=== PATIENT | female | born 1945 | race African-American/Black ===

== ENCOUNTER 2020-11-28 14:04 | Inpatient (IN) | payer MEDICARE, MEDICAID ==
[~2020-11-28] VITALS: Ht 172.7 cm; Wt 77.1 kg
[2020-11-28] MEDS ORDERED: ACETAMINOPHEN WITH CODEINE 300/30MG TABLET PO ONE (14:45)
[2020-11-28] MEDS ORDERED: ONDANSETRON HCL 4MG/2ML INJ IV STA (17:38)
[2020-11-28] MEDS ORDERED: MORPHINE SULFATE 4 MG/ML CPJ (NOT FOR IM USE) IV STA (17:38)
[2020-11-28] MEDS ORDERED: SODIUM CHLORIDE 0.9% 1,000 ML IV ONE (17:45)
[2020-11-28 18:13] LABS: BASOPHILS % 0.2 % (0.0-2.0); EOSINOPHILS % 0.1 % (0.0-5.0); HEMOGLOBIN. 12.3 g/dL (12.0-16.0); LYMPHOCYTES % 13.5 % (20.0-50.0); MEAN CORPUSCULAR VOLUME 81.2 fL (81.0-99.0); MEAN PLATELET VOLUME 9.2 fl (7.4-10.4); MONOCYTES % 7.9 % (2.0-8.0); NEUTROPHILS % 78.3 % (40.0-76.0); PLATELET 219 x1000/uL (130-400); RED BLOOD CELL COUNT 4.56 mill/uL (4.2-5.4); RED CELL DISTRIBUTION WIDTH 14.5 % (11.6-14.6)
[2020-11-28 18:21] LABS: INR 1.2; PROTHROMBIN TIME 12.4 sec (9.6-11.0)
[2020-11-28 18:30] LABS: CHLORIDE 104 mEq/L (98-107)
[2020-11-28] MEDS: MORPHINE SULFATE 2 MG/ML CPJ (NOT FOR IM USE) IV PRN (22:49)
[2020-11-29] VITALS (7 sets, daily range): BP systolic 102–163; BP diastolic 44–95
[2020-11-29] MEDS ORDERED: ONDANSETRON HCL 4MG/2ML INJ IV PRN (01:45)
[2020-11-29 06:53] LABS: CHLORIDE 107 mEq/L (98-107)
[2020-11-29 07:12] LABS: BASOPHILS % 0.4 % (0.0-2.0); EOSINOPHILS % 0.1 % (0.0-5.0); HEMATOCRIT. 30.8 % (36.0-48.0); HEMOGLOBIN. 10.2 g/dL (12.0-16.0); LYMPHOCYTES % 15.6 % (20.0-50.0); MEAN CORPUSCULAR HEMOGLOBIN 26.7 pg (28.0-32.0); MEAN PLATELET VOLUME 9.9 fl (7.4-10.4); MONOCYTES % 10.9 % (2.0-8.0); PLATELET 207 x1000/uL (130-400); RED CELL DISTRIBUTION WIDTH 14.4 % (11.6-14.6)
[2020-11-29] MEDS: METOPROLOL TARTRATE 50MG TABLET PO SCH ×2 (08:37→21:00)
[2020-11-29] MEDS ORDERED: ENOXAPARIN 40MG/0.4ML SYR SUBCUT SCH (09:00)
[2020-11-29 17:26] LABS: CLARITY URINE CLEAR (CLEAR); COLOR URINE YELLOW (YELLOW); KETONES URINE TRACE (NEGATIVE); LEUKOCYTE ESTERASE URINE NEGATIVE (NEGATIVE); NITRITE URINE NEGATIVE (NEGATIVE); OCCULT BLOOD URINE 3+ (NEGATIVE); PH URINE 5.5 (4.5-8.0); PROTEIN URINE 1+ (NEGATIVE); UROBILINOGEN URINE 0.2 E.U./dL (0.2-1.0)
[2020-11-30] VITALS: BP 116/52
[2020-11-30 04:00] VITALS: BP 120/75
[2020-11-30 08:00] VITALS: BP 117/65
[2020-11-30] MEDS: METOPROLOL TARTRATE 50MG TABLET PO SCH ×2 (08:45→21:00)
[2020-11-30] MEDS ORDERED: BUPIVACAINE HCL 0.5% (5MG/ML) 50ML ONE (11:46)
[2020-11-30] MEDS ORDERED: LIDOCAINE 1%/EPI 1:200,000 10 ML VIAL IJ ONE (11:48)
[2020-11-30] MEDS ORDERED: VANCOMYCIN HCL 1 GM/VIAL ONE (11:49)
[2020-11-30] MEDS ORDERED: POLYMYXIN B SULFATE 500000 UNITS/VIAL ONE (11:49)
[2020-11-30 12:00] VITALS: BP 104/49
[2020-11-30 16:00] VITALS: BP 101/42
[2020-11-30 20:01] VITALS: BP 118/48
[2020-12-01] VITALS: BP 130/55
[2020-12-01 04:00] VITALS: BP 117/59
[2020-12-01 08:00] VITALS: BP 139/64
[2020-12-01] MEDS: METOPROLOL TARTRATE 50MG TABLET PO SCH (08:43)
[2020-12-01 12:00] VITALS: BP 106/56
[2020-12-01 16:00] VITALS: BP 110/54
[2020-12-01 20:00] VITALS: BP 125/51
[2020-12-02] VITALS: BP 150/58
[2020-12-02] MEDS: METOPROLOL TARTRATE 50MG TABLET PO SCH ×2 (00:58→09:00)
[2020-12-02] MEDS: MORPHINE SULFATE 2 MG/ML CPJ (NOT FOR IM USE) IV PRN ×2 (01:01→10:29)
[2020-12-02 04:00] VITALS: BP 142/53
[2020-12-02 06:17] LABS: BASOPHILS % 0.3 % (0.0-2.0); EOSINOPHILS % 0.6 % (0.0-5.0); HEMATOCRIT. 26.4 % (36.0-48.0); HEMOGLOBIN. 8.7 g/dL (12.0-16.0); LYMPHOCYTES % 14.1 % (20.0-50.0); MEAN CORPUSCULAR HEMOGLOBIN 26.5 pg (28.0-32.0); MEAN CORPUSCULAR VOLUME 80.5 fL (81.0-99.0); MEAN PLATELET VOLUME 9.3 fl (7.4-10.4); MONOCYTES % 11.9 % (2.0-8.0); NEUTROPHILS % 73.1 % (40.0-76.0); PLATELET 179 x1000/uL (130-400); RED BLOOD CELL COUNT 3.28 mill/uL (4.2-5.4); RED CELL DISTRIBUTION WIDTH 14.1 % (11.6-14.6)
[2020-12-02 06:27] LABS: CHLORIDE 106 mEq/L (98-107)
[2020-12-02 08:00] VITALS: BP 96/54
[2020-12-02 20:00] VITALS: BP 117/46
[2020-12-02] MEDS: METOPROLOL TARTRATE 25MG TABLET PO SCH (20:47)
[2020-12-03] VITALS: BP 111/42
[2020-12-03 04:00] VITALS: BP 111/54
[2020-12-03 06:54] LABS: BASOPHILS % 0.3 % (0.0-2.0); EOSINOPHILS % 2.2 % (0.0-5.0); HEMATOCRIT. 24.2 % (36.0-48.0); HEMOGLOBIN. 8.1 g/dL (12.0-16.0); LYMPHOCYTES % 17.4 % (20.0-50.0); MEAN CORPUSCULAR HEMOGLOBIN 26.7 pg (28.0-32.0); MEAN CORPUSCULAR VOLUME 79.8 fL (81.0-99.0); MEAN PLATELET VOLUME 9.2 fl (7.4-10.4); MONOCYTES % 14.1 % (2.0-8.0); PLATELET 204 x1000/uL (130-400); RED BLOOD CELL COUNT 3.03 mill/uL (4.2-5.4); RED CELL DISTRIBUTION WIDTH 14.3 % (11.6-14.6)
[2020-12-03 07:35] LABS: CHLORIDE 107 mEq/L (98-107)
[2020-12-03 08:00] VITALS: BP 141/69
[2020-12-03] MEDS: METOPROLOL TARTRATE 25MG TABLET PO SCH ×2 (09:59→21:00)
[2020-12-03 12:00] VITALS: BP 116/50
[2020-12-03] MEDS ORDERED: REGADENOSON 0.4 MG/5 ML IV ONE (12:11)
[2020-12-03] MEDS ORDERED: BUPIVACAINE HCL/PF 0.5% (5MG/ML) 10ML ONE (15:54)
[2020-12-03] MEDS ORDERED: VANCOMYCIN HCL 1 GM/VIAL ONE (15:55)
[2020-12-03] MEDS ORDERED: LIDOCAINE 1%/EPI 1:200,000 10 ML VIAL IJ ONE (15:55)
[2020-12-03] MEDS ORDERED: POLYMYXIN B SULFATE 500000 UNITS/VIAL ONE (15:55)
[2020-12-03 16:00] VITALS: BP 113/52
[2020-12-03] MEDS ORDERED: FENTANYL CITRATE/PF 50MCG/ML 2ML VIAL ONE ×2 (17:52→19:02)
[2020-12-03] MEDS ORDERED: GLYCOPYRROLATE 0.2 MG/ML 2ML VIAL ONE ×2 (17:53→19:26)
[2020-12-03] MEDS ORDERED: MIDAZOLAM HCL 2 MG/2 ML VIAL ONE (17:53)
[2020-12-03] MEDS ORDERED: PROPOFOL 200MG/20ML VIAL IV ONE (17:53)
[2020-12-03] MEDS ORDERED: METOCLOPRAMIDE HCL 10MG/2ML VIAL ONE (17:53)
[2020-12-03] MEDS ORDERED: SUCCINYLCHOLINE CHLORIDE 200MG/10ML IV ONE (17:53)
[2020-12-03] MEDS ORDERED: ONDANSETRON HCL 4MG/2ML INJ ONE (17:53)
[2020-12-03] MEDS ORDERED: ROCURONIUM BROMIDE 10MG/ML VIAL 5ML IV ONE (18:00)
[2020-12-03] MEDS ORDERED: CEFAZOLIN SODIUM 1000MG/VIAL ONE (18:02)
[2020-12-03] MEDS ORDERED: GENTAMICIN SULF 40MG/ML 2ML VIAL ONE (18:47)
[2020-12-03] MEDS ORDERED: NEOSTIGMINE METHYLSULFATE 1MG/ML 10 ML VIAL ONE (19:26)
[2020-12-03] MEDS ORDERED: MORPHINE SULFATE 2 MG/ML CPJ (NOT FOR IM USE) IV PRN (19:45)
[2020-12-03] MEDS ORDERED: HYDROMORPHONE HCL/PF 2MG/ML CPJ IV PRN (19:45)
[2020-12-03] MEDS ORDERED: SODIUM CHLORIDE 0.9% 1,000 ML IV ONE (19:45)
[2020-12-03] MEDS ORDERED: ONDANSETRON HCL 4MG/2ML INJ IV PRN (19:45)
[2020-12-03] MEDS ORDERED: MEPERIDINE HCL/PF 25MG/ML CPJ IV PRN ×2 (19:45)
[2020-12-03] MEDS ORDERED: HYDROMORPHONE PCA 10MG/50ML IV PRN (20:00)
[2020-12-03] MEDS ORDERED: NALOXONE INJ IV PRN (20:00)
[2020-12-03] MEDS ORDERED: DIPHENHYDRAMINE INJ IV PRN (20:00)
[2020-12-03] MEDS ORDERED: ONDANSETRON INJ IV PRN (20:00)
[2020-12-03] MEDS ORDERED: CEFAZOLIN SODIUM 1000MG/VIAL IV SCH (22:00)
[2020-12-03] MEDS: CEFAZOLIN 1000MG PREMIX 50 ML IV SCH (23:53)
[2020-12-04 00:02] VITALS: BP 140/63
[2020-12-04 04:00] VITALS: BP 128/66
[2020-12-04 05:30] LABS: HEMATOCRIT. 25.9 % (36.0-48.0); HEMOGLOBIN. 8.4 g/dL (12.0-16.0); MEAN CORPUSCULAR HEMOGLOBIN 26.2 pg (28.0-32.0); MEAN CORPUSCULAR VOLUME 80.9 fL (81.0-99.0); MEAN PLATELET VOLUME 8.7 fl (7.4-10.4); PLATELET 222 x1000/uL (130-400); RED CELL DISTRIBUTION WIDTH 14.4 % (11.6-14.6)
[2020-12-04 05:38] LABS: CHLORIDE 106 mEq/L (98-107)
[2020-12-04] MEDS: CEFAZOLIN 1000MG PREMIX 50 ML IV SCH ×3 (06:16→22:10)
[2020-12-04 08:00] VITALS: BP 136/69
[2020-12-04] MEDS: METOPROLOL TARTRATE 25MG TABLET PO SCH ×2 (09:38→22:08)
[2020-12-04 12:00] VITALS: BP 124/67
[2020-12-04] MEDS: DOCUSATE SODIUM SUGAR FREE 100MG/10ML UDC PO SCH (15:12)
[2020-12-04 16:00] VITALS: BP 127/61
[2020-12-04 16:25] LABS: PLATELET ESTIMATE NORMAL
[2020-12-04 20:00] VITALS: BP 146/74
[2020-12-04] MEDS: IPRATROPIUM/ALBUTEROL 0.5-3(2.5)MG/3ML NEB HHN SCH (20:51)
[2020-12-04] MEDS: ATORVASTATIN CALCIUM 20MG TABLET PO SCH (22:09)
[2020-12-05] VITALS: BP 105/65
[2020-12-05] MEDS: IPRATROPIUM/ALBUTEROL 0.5-3(2.5)MG/3ML NEB HHN SCH ×3 (02:02→20:25)
[2020-12-05 04:00] VITALS: BP 134/59
[2020-12-05 06:39] LABS: BASOPHILS % 0.2 % (0.0-2.0); EOSINOPHILS % 0.1 % (0.0-5.0); LYMPHOCYTES % 10.9 % (20.0-50.0); MEAN CORPUSCULAR HEMOGLOBIN 26.3 pg (28.0-32.0); MEAN CORPUSCULAR VOLUME 80.5 fL (81.0-99.0); MEAN PLATELET VOLUME 8.3 fl (7.4-10.4); MONOCYTES % 11.1 % (2.0-8.0); NEUTROPHILS % 77.7 % (40.0-76.0); PLATELET 198 x1000/uL (130-400); RED CELL DISTRIBUTION WIDTH 14.2 % (11.6-14.6)
[2020-12-05 06:43] LABS: CHLORIDE 108 mEq/L (98-107)
[2020-12-05 08:00] VITALS: BP 116/86
[2020-12-05 08:10] LABS: HEMATOCRIT. 21.7 % (36.0-48.0); HEMOGLOBIN. 7.1 g/dL (12.0-16.0)
[2020-12-05] MEDS: HYDROCODONE/ACETAMINOPHEN 5/325MG TABLET PO PRN (09:36)
[2020-12-05] MEDS: DOCUSATE SODIUM SUGAR FREE 100MG/10ML UDC PO SCH (09:36)
[2020-12-05] MEDS ORDERED: DEXTROSE 50% WATER 50ML SYRINGE IV PRN (11:45)
[2020-12-05 12:00] VITALS: BP 95/41
[2020-12-05] MEDS: BLOOD SUGAR DIAGNOSTIC STRIP TEST SCH ×3 (12:20→21:34)
[2020-12-05] MEDS: INSULIN LISPRO 100 UNITS/ML SUBCUT SCH ×3 (12:50→21:36)
[2020-12-05 16:10] VITALS: BP 127/56
[2020-12-05] MEDS ORDERED: PIPERACILLIN/TAZOBACTAM 3.375 G/VIAL IV SCH (18:00)
[2020-12-05 18:24] LABS: T4 FREE 1.6 ng/dL (0.76-1.46)
[2020-12-05 18:49] LABS: VITAMIN B12 SERUM 1587 pg/mL (211-911)
[2020-12-05] MEDS: PIPERACILLIN/TAZOBACTAM 3.375 G in DEXT 5% WATER 100 ML IV SCH (18:56)
[2020-12-05 18:59] LABS: FOLIC ACID (FOLATE) SERUM > 20.00 ng/mL (>5.38)
[2020-12-05 20:00] VITALS: BP 107/60
[2020-12-05 20:08] LABS: CLARITY URINE CLEAR (CLEAR); COLOR URINE YELLOW (YELLOW); KETONES URINE NEGATIVE (NEGATIVE); LEUKOCYTE ESTERASE URINE NEGATIVE (NEGATIVE); NITRITE URINE NEGATIVE (NEGATIVE); OCCULT BLOOD URINE 2+ (NEGATIVE); PH URINE 6.5 (4.5-8.0); PROTEIN URINE TRACE (NEGATIVE); SPECIFIC GRAVITY URINE 1.085 (1.005-1.030)
[2020-12-05] MEDS ORDERED: ENOXAPARIN 80MG/0.8ML SYR SUBCUT SCH (21:00)
[2020-12-05] MEDS: ATORVASTATIN CALCIUM 20MG TABLET PO SCH (21:34)
[2020-12-06] VITALS (10 sets, daily range): BP systolic 103–127; BP diastolic 44–62
[2020-12-06 00:27] LABS: BASOPHILS % 0.3 % (0.0-2.0); EOSINOPHILS % 1.7 % (0.0-5.0); HEMOGLOBIN. 7.5 g/dL (12.0-16.0); MEAN CORPUSCULAR HEMOGLOBIN 26.4 pg (28.0-32.0); MEAN CORPUSCULAR VOLUME 81.2 fL (81.0-99.0); MEAN PLATELET VOLUME 8.2 fl (7.4-10.4); MONOCYTES % 11.1 % (2.0-8.0); NEUTROPHILS % 71.9 % (40.0-76.0); PLATELET 219 x1000/uL (130-400); RED BLOOD CELL COUNT 2.83 mill/uL (4.2-5.4); RED CELL DISTRIBUTION WIDTH 14.2 % (11.6-14.6)
[2020-12-06] MEDS ORDERED: IOHEXOL-350 100 ML BOTTLE ONE (01:18)
[2020-12-06] MEDS: IPRATROPIUM/ALBUTEROL 0.5-3(2.5)MG/3ML NEB HHN SCH ×4 (03:11→20:09)
[2020-12-06] MEDS: PIPERACILLIN/TAZOBACTAM 3.375 G in DEXT 5% WATER 100 ML IV SCH ×4 (05:18→17:30)
[2020-12-06] MEDS: BLOOD SUGAR DIAGNOSTIC STRIP TEST SCH ×4 (05:47→20:40)
[2020-12-06 07:00] LABS: BASOPHILS % 0.4 % (0.0-2.0); EOSINOPHILS % 2.3 % (0.0-5.0); LYMPHOCYTES % 16.5 % (20.0-50.0); MEAN CORPUSCULAR HEMOGLOBIN 26.1 pg (28.0-32.0); MEAN CORPUSCULAR VOLUME 80.7 fL (81.0-99.0); MEAN PLATELET VOLUME 8.5 fl (7.4-10.4); MONOCYTES % 10.7 % (2.0-8.0); NEUTROPHILS % 70.1 % (40.0-76.0); PLATELET 209 x1000/uL (130-400); RED BLOOD CELL COUNT 2.58 mill/uL (4.2-5.4); RED CELL DISTRIBUTION WIDTH 14.8 % (11.6-14.6)
[2020-12-06] MEDS: INSULIN LISPRO 100 UNITS/ML SUBCUT SCH ×4 (07:00→20:41)
[2020-12-06 07:11] LABS: CHLORIDE 109 mEq/L (98-107)
[2020-12-06 07:38] LABS: HEMOGLOBIN. 6.7 g/dL (12.0-16.0)
[2020-12-06 07:39] LABS: HEMATOCRIT. 20.8 % (36.0-48.0)
[2020-12-06] MEDS: DOCUSATE SODIUM SUGAR FREE 100MG/10ML UDC PO SCH ×2 (09:44→17:00)
[2020-12-06] MEDS: FERROUS SULFATE 325MG TABLET PO SCH ×2 (12:01→17:30)
[2020-12-06] MEDS: ACETAMINOPHEN 650MG/20.3ML UDC PO PRN ×2 (16:07→20:41)
[2020-12-06] MEDS: ATORVASTATIN CALCIUM 20MG TABLET PO SCH (20:40)
[2020-12-07] VITALS (7 sets, daily range): BP systolic 16–141; BP diastolic 54–102
[2020-12-07] MEDS: PIPERACILLIN/TAZOBACTAM 3.375 G in DEXT 5% WATER 100 ML IV SCH ×5 (01:36→23:49)
[2020-12-07] MEDS: IPRATROPIUM/ALBUTEROL 0.5-3(2.5)MG/3ML NEB HHN SCH ×4 (02:05→20:20)
[2020-12-07] MEDS: BLOOD SUGAR DIAGNOSTIC STRIP TEST SCH ×4 (06:22→21:00)
[2020-12-07] MEDS: INSULIN LISPRO 100 UNITS/ML SUBCUT SCH ×4 (06:30→22:15)
[2020-12-07 06:58] LABS: BASOPHILS % 0.4 % (0.0-2.0); EOSINOPHILS % 2.1 % (0.0-5.0); HEMATOCRIT. 24.6 % (36.0-48.0); HEMOGLOBIN. 8.2 g/dL (12.0-16.0); LYMPHOCYTES % 14.1 % (20.0-50.0); MEAN CORPUSCULAR HEMOGLOBIN 26.7 pg (28.0-32.0); MEAN CORPUSCULAR VOLUME 80.2 fL (81.0-99.0); MEAN PLATELET VOLUME 8.1 fl (7.4-10.4); MONOCYTES % 7.5 % (2.0-8.0); NEUTROPHILS % 75.9 % (40.0-76.0); PLATELET 242 x1000/uL (130-400); RED BLOOD CELL COUNT 3.06 mill/uL (4.2-5.4); RED CELL DISTRIBUTION WIDTH 14.2 % (11.6-14.6)
[2020-12-07 07:32] LABS: CHLORIDE 108 mEq/L (98-107)
[2020-12-07] MEDS: FERROUS SULFATE 325MG TABLET PO SCH ×3 (08:25→17:24)
[2020-12-07] MEDS: DOCUSATE SODIUM SUGAR FREE 100MG/10ML UDC PO SCH ×2 (08:25→17:24)
[2020-12-07] MEDS ORDERED: POTASSIUM CHLORIDE 20MEQ TABLET SR PO SCH (11:00)
[2020-12-07] MEDS: BENZONATATE 100MG CAPSULE PO PRN ×2 (12:25→23:06)
[2020-12-07] MEDS ORDERED: INSULIN GLARGINE UD 100 UNITS/ML SYR SUBCUT NR (17:00)
[2020-12-07] MEDS: HYDROCODONE/ACETAMINOPHEN 5/325MG TABLET PO PRN (23:06)
[2020-12-07] MEDS: ENOXAPARIN 80MG/0.8ML SYR SUBCUT SCH (23:07)
[2020-12-07] MEDS: ATORVASTATIN CALCIUM 20MG TABLET PO SCH (23:19)
[2020-12-07] MEDS: INSULIN GLARGINE UD 100 UNITS/ML SYR SUBCUT SCH (23:21)
[2020-12-08] VITALS: BP 153/60
[2020-12-08] MEDS: IPRATROPIUM/ALBUTEROL 0.5-3(2.5)MG/3ML NEB HHN SCH ×4 (00:40→20:27)
[2020-12-08 04:00] VITALS: BP 148/82
[2020-12-08] MEDS: BLOOD SUGAR DIAGNOSTIC STRIP TEST SCH ×4 (07:14→21:33)
[2020-12-08] MEDS: PIPERACILLIN/TAZOBACTAM 3.375 G in DEXT 5% WATER 100 ML IV SCH ×4 (07:14→23:23)
[2020-12-08] MEDS: FERROUS SULFATE 325MG TABLET PO SCH ×3 (07:14→18:12)
[2020-12-08] MEDS: INSULIN LISPRO 100 UNITS/ML SUBCUT SCH ×4 (07:15→21:43)
[2020-12-08 07:21] LABS: CHLORIDE 107 mEq/L (98-107)
[2020-12-08 07:27] LABS: BASOPHILS % 0.4 % (0.0-2.0); EOSINOPHILS % 1.7 % (0.0-5.0); HEMATOCRIT. 25.9 % (36.0-48.0); HEMOGLOBIN. 8.6 g/dL (12.0-16.0); LYMPHOCYTES % 13.5 % (20.0-50.0); MEAN CORPUSCULAR HEMOGLOBIN 26.6 pg (28.0-32.0); MEAN CORPUSCULAR VOLUME 80.5 fL (81.0-99.0); MONOCYTES % 8.6 % (2.0-8.0); NEUTROPHILS % 75.8 % (40.0-76.0); PLATELET 290 x1000/uL (130-400); RED BLOOD CELL COUNT 3.22 mill/uL (4.2-5.4); RED CELL DISTRIBUTION WIDTH 14.2 % (11.6-14.6)
[2020-12-08 08:00] VITALS: BP 128/63
[2020-12-08] MEDS: DOCUSATE SODIUM SUGAR FREE 100MG/10ML UDC PO SCH ×2 (09:12→18:12)
[2020-12-08] MEDS: INSULIN GLARGINE UD 100 UNITS/ML SYR SUBCUT SCH ×2 (09:19→21:42)
[2020-12-08] MEDS: ENOXAPARIN 80MG/0.8ML SYR SUBCUT SCH (11:37)
[2020-12-08 12:00] VITALS: BP 121/51
[2020-12-08] MEDS ORDERED: FERR325T23 PO (13:17)
[2020-12-08] MEDS ORDERED: DOCU250C14 MT (13:17)
[2020-12-08] MEDS ORDERED: LEVO500T89 MT (13:17)
[2020-12-08] MEDS ORDERED: ALBUTEROL (0.083%) 2.5MG/3ML NEB HHN PRN (15:06)
[2020-12-08 15:18] LABS: BG BASE EXCESS 4.9 mmol/L (-2.0-2.0); BG CARBOXYHEMOGLOBIN 0.6 % (0.5-1.5); BG DEOXYHEMOGLOBIN 4.6 % (0.0-5.0); BG HCO3 ACT 28.4 mmol/L (22.0-26.0); BG METHEMOGLOBIN 0.3 % (0.0-1.5); BG OXYGEN SATURATION 95.4 % (92.0-98.5); BG OXYHEMOGLOBIN 94.5 % (94.0-97.0); BG PCO2 37.8 mmHg (35.0-45.0); BG PH 7.494 (7.350-7.450); BG PO2 72.3 mmHg (75.0-100.0); BG SAMPLE SITE RIGHT BRACHIAL; BG TOTAL HEMOGLOBIN 8.9 g/dL (12.0-18.0); BG VENT MODE ROOM AIR
[2020-12-08 16:00] VITALS: BP 121/49
[2020-12-08] MEDS: APIXABAN 5 MG TABLET PO SCH (18:12)
[2020-12-08 20:00] VITALS: BP 114/55
[2020-12-08] MEDS: ATORVASTATIN CALCIUM 20MG TABLET PO SCH (21:41)
[2020-12-09] VITALS: BP 110/62
[2020-12-09] MEDS: IPRATROPIUM/ALBUTEROL 0.5-3(2.5)MG/3ML NEB HHN SCH ×3 (01:02→20:50)
[2020-12-09 04:00] VITALS: BP 114/65
[2020-12-09] MEDS: BENZONATATE 100MG CAPSULE PO PRN (04:03)
[2020-12-09] MEDS: PIPERACILLIN/TAZOBACTAM 3.375 G in DEXT 5% WATER 100 ML IV SCH ×3 (05:13→17:53)
[2020-12-09 06:21] LABS: HEMATOCRIT. 25.1 % (36.0-48.0); HEMOGLOBIN. 8.2 g/dL (12.0-16.0); MEAN CORPUSCULAR HEMOGLOBIN 26.4 pg (28.0-32.0); MEAN CORPUSCULAR VOLUME 81.3 fL (81.0-99.0); MEAN PLATELET VOLUME 7.8 fl (7.4-10.4); PLATELET 296 x1000/uL (130-400); RED BLOOD CELL COUNT 3.09 mill/uL (4.2-5.4); RED CELL DISTRIBUTION WIDTH 14.5 % (11.6-14.6)
[2020-12-09] MEDS: BLOOD SUGAR DIAGNOSTIC STRIP TEST SCH ×4 (06:22→21:15)
[2020-12-09] MEDS: INSULIN LISPRO 100 UNITS/ML SUBCUT SCH ×4 (06:22→21:16)
[2020-12-09 06:26] LABS: CHLORIDE 108 mEq/L (98-107)
[2020-12-09] MEDS ORDERED: POTASSIUM CHLORIDE 20MEQ/PACKET PO NR (07:15)
[2020-12-09 08:00] VITALS: BP 150/64
[2020-12-09] MEDS: FERROUS SULFATE 325MG TABLET PO SCH ×3 (10:07→17:53)
[2020-12-09] MEDS: APIXABAN 5 MG TABLET PO SCH ×2 (10:07→17:53)
[2020-12-09] MEDS: DOCUSATE SODIUM SUGAR FREE 100MG/10ML UDC PO SCH ×2 (10:11→17:00)
[2020-12-09] MEDS: INSULIN GLARGINE UD 100 UNITS/ML SYR SUBCUT SCH ×2 (10:13→21:16)
[2020-12-09] MEDS: ALBUTEROL (0.083%) 2.5MG/3ML NEB HHN SCH (10:16)
[2020-12-09 12:00] VITALS: BP 126/63
[2020-12-09 14:32] LABS: NUCLEATED RED BLOOD CELLS 1 /100 WBC; PLATELET ESTIMATE NORMAL
[2020-12-09 16:00] VITALS: BP 109/54
[2020-12-09 20:00] VITALS: BP 132/68
[2020-12-09] MEDS: ATORVASTATIN CALCIUM 20MG TABLET PO SCH (21:15)
[2020-12-09] MEDS: ACETAMINOPHEN 650MG/20.3ML UDC PO PRN (21:15)
[2020-12-10] VITALS: BP 147/61
[2020-12-10] MEDS: PIPERACILLIN/TAZOBACTAM 3.375 G in DEXT 5% WATER 100 ML IV SCH ×3 (00:18→12:25)
[2020-12-10] MEDS: IPRATROPIUM/ALBUTEROL 0.5-3(2.5)MG/3ML NEB HHN SCH ×4 (02:05→20:35)
[2020-12-10 04:00] VITALS: BP 138/69
[2020-12-10] MEDS: BLOOD SUGAR DIAGNOSTIC STRIP TEST SCH ×4 (06:26→21:27)
[2020-12-10] MEDS: FERROUS SULFATE 325MG TABLET PO SCH ×3 (06:26→16:37)
[2020-12-10] MEDS: INSULIN LISPRO 100 UNITS/ML SUBCUT SCH ×4 (06:27→21:28)
[2020-12-10 08:00] VITALS: BP 126/70
[2020-12-10] MEDS: ALBUTEROL (0.083%) 2.5MG/3ML NEB HHN SCH ×2 (08:56→09:07)
[2020-12-10] MEDS: DOCUSATE SODIUM SUGAR FREE 100MG/10ML UDC PO SCH ×2 (09:00→16:37)
[2020-12-10] MEDS: APIXABAN 5 MG TABLET PO SCH ×2 (09:40→16:37)
[2020-12-10] MEDS: INSULIN GLARGINE UD 100 UNITS/ML SYR SUBCUT SCH ×2 (10:58→21:28)
[2020-12-10 12:00] VITALS: BP 130/69
[2020-12-10 16:00] VITALS: BP 136/67
[2020-12-10 20:00] VITALS: BP 98/61
[2020-12-10] MEDS: ATORVASTATIN CALCIUM 20MG TABLET PO SCH (21:27)
[2020-12-11] MEDS: IPRATROPIUM/ALBUTEROL 0.5-3(2.5)MG/3ML NEB HHN SCH ×2 (01:21→20:00)
[2020-12-11 04:00] VITALS: BP 128/50
[2020-12-11] MEDS: BLOOD SUGAR DIAGNOSTIC STRIP TEST SCH ×4 (05:41→21:16)
[2020-12-11] MEDS: INSULIN LISPRO 100 UNITS/ML SUBCUT SCH ×5 (05:41→22:26)
[2020-12-11] MEDS: FERROUS SULFATE 325MG TABLET PO SCH ×4 (07:15→16:23)
[2020-12-11 08:00] VITALS: BP 135/63
[2020-12-11] MEDS: DOCUSATE SODIUM SUGAR FREE 100MG/10ML UDC PO SCH ×2 (09:00→16:25)
[2020-12-11] MEDS: ALBUTEROL (0.083%) 2.5MG/3ML NEB HHN SCH ×2 (09:28→14:51)
[2020-12-11] MEDS: APIXABAN 5 MG TABLET PO SCH ×2 (09:58→16:23)
[2020-12-11] MEDS: INSULIN GLARGINE UD 100 UNITS/ML SYR SUBCUT SCH ×2 (10:05→21:24)
[2020-12-11 12:00] VITALS: BP 102/57
[2020-12-11 15:11] VITALS: BP 102/57
[2020-12-11 16:00] VITALS: BP 115/49
[2020-12-11 16:23] LABS: HEMATOCRIT. 28.8 % (36.0-48.0); HEMOGLOBIN. 9.3 g/dL (12.0-16.0); MEAN CORPUSCULAR HEMOGLOBIN 26.6 pg (28.0-32.0); MEAN PLATELET VOLUME 7.8 fl (7.4-10.4); PLATELET 439 x1000/uL (130-400); RED BLOOD CELL COUNT 3.52 mill/uL (4.2-5.4); RED CELL DISTRIBUTION WIDTH 14.8 % (11.6-14.6)
[2020-12-11 16:37] LABS: CHLORIDE 107 mEq/L (98-107)
[2020-12-11 16:55] LABS: PLATELET ESTIMATE INCREASED
[2020-12-11 20:00] VITALS: BP 129/60
[2020-12-11] MEDS: ATORVASTATIN CALCIUM 20MG TABLET PO SCH (21:16)
== END 2020-12-11 22:58 | DRG 480 ==
LOC: ER 14:20 → EDBD 20:09 → 6EST 20:09 → ENRESERV 22:15 → 5WST 12-05 18:34
PROVIDERS: ADMIT Internal Medicine; ATTEND Internal Medicine
PROC: 0QSC06Z Reposition Left Lower Femur with Intramedullary Internal Fixation Device, Open Approach (ICD-10-PCS; 2020-12-02)
PROC: 30233N1 Transfusion of Nonautologous Red Blood Cells into Peripheral Vein, Percutaneous Approach (ICD-10-PCS; 2020-12-06)
PROC: 4A10X4Z Monitoring of Central Nervous Electrical Activity, External Approach (ICD-10-PCS; principal; 2020-12-07)
DX: S72.492A Other fracture of lower end of left femur, initial encounter for closed fracture (principal); A41.9 Sepsis, unspecified organism; G92 Toxic encephalopathy; I26.99 Other pulmonary embolism without acute cor pulmonale; J69.0 Pneumonitis due to inhalation of food and vomit; J96.01 Acute respiratory failure with hypoxia; M97.12XA Periprosthetic fracture around internal prosthetic left knee joint, initial encounter; E87.1 Hypo-osmolality and hyponatremia; I10 Essential (primary) hypertension; E11.9 Type 2 diabetes mellitus without complications; E03.9 Hypothyroidism, unspecified; I16.0 Hypertensive urgency; E78.5 Hyperlipidemia, unspecified; W18.39XA Other fall on same level, initial encounter; D64.9 Anemia, unspecified; R26.89 Other abnormalities of gait and mobility; R47.1 Dysarthria and anarthria; R13.10 Dysphagia, unspecified; R20.0 Anesthesia of skin; Z20.822 Contact with and (suspected) exposure to COVID-19; R53.81 Other malaise; E78.00 Pure hypercholesterolemia, unspecified; Y93.89 Activity, other specified; Y99.8 Other external cause status; Y92.098 Other place in other non-institutional residence as the place of occurrence of the external cause
CPT/HCPCS: 36415; 36600; 70551; 71045; 71275; 73552; 73560; 76000; 78452; 80048; 80053; 80061; 81003; 82270; 82375; 82607; 82746; 82805; 82962; 83036; 83880; 84439; 84443; 84481; 84484; 85025; 85379; 86850; 86900; 86920; 87426; 92610; 93005; 93017; 93306; 93970; 94640; 97163; 97164; 97166; 97168; 97530; 97535; 99291; A4565; A6261; A9500; C1713; C1893; J0330; J0690; J1170; J1580; J1650; J1815; J2250; J2270; J2405; J2543; J2704; J2710; J2765; J2785; J3010; J3370; J3490; J7030; J7040; J7060; P9016; Q9967; A4315

== ENCOUNTER 2020-12-11 22:46 | Inpatient (IN) | payer MEDICARE, MEDICAID ==
[~2020-12-11] VITALS: Ht 172.7 cm; Wt 77.1 kg
[2020-12-11 22:46] VITALS: BP 123/59
[~2020-12-11 22:46] MED LIST: DOCU250C14 MT; FERR325T23 PO; LEVO500T89 MT
[2020-12-11] MEDS ORDERED: BENZONATATE 100MG CAPSULE PO PRN (23:45)
[2020-12-11] MEDS ORDERED: ALBUTEROL (0.083%) 2.5MG/3ML NEB HHN PRN (23:45)
[2020-12-11] MEDS ORDERED: DEXTROSE 50% WATER 50ML SYRINGE IV PRN (23:45)
[2020-12-11] MEDS ORDERED: ONDANSETRON HCL 4MG/2ML INJ IV PRN (23:45)
[2020-12-12] MEDS ORDERED: ALBUTEROL (0.083%) 2.5MG/3ML NEB HHN SCH (00:30)
[2020-12-12] MEDS: IPRATROPIUM/ALBUTEROL 0.5-3(2.5)MG/3ML NEB HHN SCH ×3 (02:12→12:00)
[2020-12-12 06:44] LABS: CHLORIDE 109 mEq/L (98-107)
[2020-12-12 06:47] LABS: BASOPHILS % 0.3 % (0.0-2.0); EOSINOPHILS % 2.5 % (0.0-5.0); HEMATOCRIT. 30.2 % (36.0-48.0); HEMOGLOBIN. 9.7 g/dL (12.0-16.0); LYMPHOCYTES % 15.7 % (20.0-50.0); MEAN CORPUSCULAR HEMOGLOBIN 26.3 pg (28.0-32.0); MEAN CORPUSCULAR VOLUME 82.1 fL (81.0-99.0); MEAN PLATELET VOLUME 7.6 fl (7.4-10.4); MONOCYTES % 12.4 % (2.0-8.0); NEUTROPHILS % 69.1 % (40.0-76.0); PLATELET 458 x1000/uL (130-400); RED BLOOD CELL COUNT 3.67 mill/uL (4.2-5.4); RED CELL DISTRIBUTION WIDTH 15.3 % (11.6-14.6)
[2020-12-12] MEDS: BLOOD SUGAR DIAGNOSTIC STRIP TEST SCH ×4 (07:00→21:04)
[2020-12-12] MEDS: INSULIN LISPRO 100 UNITS/ML SUBCUT SCH ×4 (07:47→21:11)
[2020-12-12 08:22] VITALS: BP 133/58
[2020-12-12] MEDS: DOCUSATE SODIUM SUGAR FREE 100MG/10ML UDC PO SCH ×2 (08:54→17:30)
[2020-12-12] MEDS: FERROUS SULFATE 325MG TABLET PO SCH ×3 (08:54→17:22)
[2020-12-12] MEDS: APIXABAN 5 MG TABLET PO SCH ×2 (08:54→17:22)
[2020-12-12] MEDS: INSULIN GLARGINE UD 100 UNITS/ML SYR SUBCUT SCH ×2 (10:52→21:09)
[2020-12-12 19:33] LABS: CLARITY URINE CLEAR (CLEAR); COLOR URINE DARK YELLOW (YELLOW); KETONES URINE NEGATIVE (NEGATIVE); LEUKOCYTE ESTERASE URINE NEGATIVE (NEGATIVE); NITRITE URINE NEGATIVE (NEGATIVE); OCCULT BLOOD URINE NEGATIVE (NEGATIVE); PROTEIN URINE NEGATIVE (NEGATIVE); SPECIFIC GRAVITY URINE 1.017 (1.005-1.030)
[2020-12-12 20:00] VITALS: BP 127/52
[2020-12-12] MEDS: ATORVASTATIN CALCIUM 20MG TABLET PO SCH (21:06)
[2020-12-13] MEDS: BLOOD SUGAR DIAGNOSTIC STRIP TEST SCH ×4 (05:52→21:49)
[2020-12-13] MEDS: INSULIN LISPRO 100 UNITS/ML SUBCUT SCH ×4 (05:52→22:15)
[2020-12-13 08:00] VITALS: BP 123/47
[2020-12-13] MEDS: DOCUSATE SODIUM SUGAR FREE 100MG/10ML UDC PO SCH ×2 (09:32→17:05)
[2020-12-13] MEDS: APIXABAN 5 MG TABLET PO SCH ×2 (09:32→17:05)
[2020-12-13] MEDS: FERROUS SULFATE 325MG TABLET PO SCH ×3 (09:32→17:05)
[2020-12-13] MEDS: INSULIN GLARGINE UD 100 UNITS/ML SYR SUBCUT SCH ×2 (10:52→22:15)
[2020-12-13] MEDS: LACTULOSE 20G/30ML UDC PO SCH ×4 (11:12→21:55)
[2020-12-13] MEDS: ACETAMINOPHEN 650MG/20.3ML UDC PO PRN (15:16)
[2020-12-13 20:00] VITALS: BP_SYST 121; BP_SYST 156; BP_DIAS 48; BP_DIAS 72
[2020-12-13] MEDS: ATORVASTATIN CALCIUM 20MG TABLET PO SCH (21:51)
[2020-12-14] MEDS: LACTULOSE 20G/30ML UDC PO SCH (02:00)
[2020-12-14] MEDS: BLOOD SUGAR DIAGNOSTIC STRIP TEST SCH ×4 (06:24→21:00)
[2020-12-14 08:00] VITALS: BP 123/53
[2020-12-14] MEDS: INSULIN LISPRO 100 UNITS/ML SUBCUT SCH ×4 (09:00→21:00)
[2020-12-14] MEDS ORDERED: NA PHOS,M-B/NA PHOS,DI-BA ENEMA 118ML PR PRN (09:00)
[2020-12-14] MEDS ORDERED: LACTULOSE 20G/30ML UDC PO PRN (09:00)
[2020-12-14] MEDS: DOCUSATE SODIUM SUGAR FREE 100MG/10ML UDC PO SCH ×2 (09:10→17:39)
[2020-12-14] MEDS: APIXABAN 5 MG TABLET PO SCH ×2 (09:12→17:38)
[2020-12-14] MEDS: FERROUS SULFATE 325MG TABLET PO SCH ×3 (09:12→17:38)
[2020-12-14] MEDS: INSULIN GLARGINE UD 100 UNITS/ML SYR SUBCUT SCH ×2 (11:08→23:32)
[2020-12-14] MEDS ORDERED: EZ-HD SUSPENSION(BARIUM SULFATE 340GM) PO ONE (14:37)
[2020-12-14 20:00] VITALS: BP 124/57
[2020-12-14] MEDS: ATORVASTATIN CALCIUM 20MG TABLET PO SCH (22:42)
[2020-12-15 08:00] VITALS: BP 116/53
[2020-12-15] MEDS: DOCUSATE SODIUM SUGAR FREE 100MG/10ML UDC PO SCH ×2 (08:34→16:48)
[2020-12-15] MEDS: APIXABAN 5 MG TABLET PO SCH ×2 (08:35→16:48)
[2020-12-15] MEDS: ACETAMINOPHEN 650MG/20.3ML UDC PO PRN (08:35)
[2020-12-15] MEDS: FERROUS SULFATE 325MG TABLET PO SCH ×3 (08:35→16:51)
[2020-12-15] MEDS: INSULIN LISPRO 100 UNITS/ML SUBCUT SCH ×4 (08:36→21:00)
[2020-12-15] MEDS: INSULIN GLARGINE UD 100 UNITS/ML SYR SUBCUT SCH ×2 (09:58→21:39)
[2020-12-15] MEDS: BLOOD SUGAR DIAGNOSTIC STRIP TEST SCH ×3 (11:18→21:36)
[2020-12-15 20:00] VITALS: BP 132/60
[2020-12-15] MEDS: ATORVASTATIN CALCIUM 20MG TABLET PO SCH (21:43)
[2020-12-16] MEDS: BLOOD SUGAR DIAGNOSTIC STRIP TEST SCH ×4 (06:37→21:00)
[2020-12-16 07:01] LABS: BASOPHILS % 0.4 % (0.0-2.0); EOSINOPHILS % 1.4 % (0.0-5.0); HEMATOCRIT. 31.9 % (36.0-48.0); HEMOGLOBIN. 10.1 g/dL (12.0-16.0); LYMPHOCYTES % 17.2 % (20.0-50.0); MEAN CORPUSCULAR HEMOGLOBIN 26.1 pg (28.0-32.0); MEAN CORPUSCULAR VOLUME 82.8 fL (81.0-99.0); MEAN PLATELET VOLUME 7.8 fl (7.4-10.4); MONOCYTES % 9.9 % (2.0-8.0); NEUTROPHILS % 71.1 % (40.0-76.0); PLATELET 496 x1000/uL (130-400); RED BLOOD CELL COUNT 3.85 mill/uL (4.2-5.4); RED CELL DISTRIBUTION WIDTH 15.5 % (11.6-14.6)
[2020-12-16 07:10] LABS: CHLORIDE 109 mEq/L (98-107)
[2020-12-16 08:00] VITALS: BP 144/50
[2020-12-16] MEDS: INSULIN LISPRO 100 UNITS/ML SUBCUT SCH ×4 (09:00→22:18)
[2020-12-16] MEDS: FERROUS SULFATE 325MG TABLET PO SCH ×3 (09:14→17:11)
[2020-12-16] MEDS: APIXABAN 5 MG TABLET PO SCH ×2 (09:14→17:04)
[2020-12-16] MEDS: DOCUSATE SODIUM SUGAR FREE 100MG/10ML UDC PO SCH ×2 (09:14→17:04)
[2020-12-16] MEDS: INSULIN GLARGINE UD 100 UNITS/ML SYR SUBCUT SCH ×2 (09:26→22:31)
[2020-12-16] MEDS: LACTULOSE 20G/30ML UDC PO SCH ×2 (12:53→17:05)
[2020-12-16 20:00] VITALS: BP 155/59
[2020-12-16] MEDS: ACETAMINOPHEN 650MG/20.3ML UDC PO PRN (22:15)
[2020-12-16] MEDS: ATORVASTATIN CALCIUM 20MG TABLET PO SCH (22:16)
[2020-12-17] MEDS: BLOOD SUGAR DIAGNOSTIC STRIP TEST SCH ×4 (05:52→21:32)
[2020-12-17] MEDS: INSULIN LISPRO 100 UNITS/ML SUBCUT SCH ×4 (05:52→21:43)
[2020-12-17 08:12] VITALS: BP 136/73
[2020-12-17] MEDS: FERROUS SULFATE 325MG TABLET PO SCH ×3 (09:22→17:14)
[2020-12-17] MEDS: ACETAMINOPHEN 650MG/20.3ML UDC PO PRN (09:22)
[2020-12-17] MEDS: APIXABAN 5 MG TABLET PO SCH ×2 (09:22→17:14)
[2020-12-17] MEDS: DOCUSATE SODIUM SUGAR FREE 100MG/10ML UDC PO SCH ×2 (09:22→17:14)
[2020-12-17] MEDS: INSULIN GLARGINE UD 100 UNITS/ML SYR SUBCUT SCH ×2 (11:22→21:44)
[2020-12-17 20:00] VITALS: BP 126/55
[2020-12-17] MEDS: ATORVASTATIN CALCIUM 20MG TABLET PO SCH (21:36)
[2020-12-18] MEDS: INSULIN LISPRO 100 UNITS/ML SUBCUT SCH ×4 (06:31→20:50)
[2020-12-18] MEDS: BLOOD SUGAR DIAGNOSTIC STRIP TEST SCH ×4 (06:31→21:00)
[2020-12-18 08:00] VITALS: BP_SYST 114; BP_SYST 142; BP_DIAS 45; BP_DIAS 56
[2020-12-18] MEDS: FERROUS SULFATE 325MG TABLET PO SCH ×3 (09:11→17:28)
[2020-12-18] MEDS: APIXABAN 5 MG TABLET PO SCH ×2 (09:11→17:28)
[2020-12-18] MEDS: DOCUSATE SODIUM SUGAR FREE 100MG/10ML UDC PO SCH ×2 (09:11→17:33)
[2020-12-18] MEDS: ACETAMINOPHEN 650MG/20.3ML UDC PO PRN (09:12)
[2020-12-18] MEDS: INSULIN GLARGINE UD 100 UNITS/ML SYR SUBCUT SCH ×2 (10:21→23:03)
[2020-12-18 20:00] VITALS: BP 118/54
[2020-12-18] MEDS: ATORVASTATIN CALCIUM 20MG TABLET PO SCH (20:35)
[2020-12-19] MEDS: BLOOD SUGAR DIAGNOSTIC STRIP TEST SCH ×4 (05:53→21:32)
[2020-12-19 08:00] VITALS: BP 151/75
[2020-12-19] MEDS: FERROUS SULFATE 325MG TABLET PO SCH ×3 (09:00→16:49)
[2020-12-19] MEDS: APIXABAN 5 MG TABLET PO SCH ×2 (09:00→16:49)
[2020-12-19] MEDS: INSULIN LISPRO 100 UNITS/ML SUBCUT SCH ×4 (09:00→21:00)
[2020-12-19] MEDS: DOCUSATE SODIUM SUGAR FREE 100MG/10ML UDC PO SCH ×2 (11:07→16:48)
[2020-12-19] MEDS: INSULIN GLARGINE UD 100 UNITS/ML SYR SUBCUT SCH ×2 (11:09→21:55)
[2020-12-19] MEDS: BISACODYL 5MG TABLET PO PRN (17:13)
[2020-12-19 20:00] VITALS: BP 131/54
[2020-12-19] MEDS: ATORVASTATIN CALCIUM 20MG TABLET PO SCH (21:37)
[2020-12-20 06:31] LABS: BASOPHILS % 0.5 % (0.0-2.0); HEMATOCRIT. 32.4 % (36.0-48.0); HEMOGLOBIN. 10.7 g/dL (12.0-16.0); LYMPHOCYTES % 25.1 % (20.0-50.0); MEAN CORPUSCULAR HEMOGLOBIN 26.9 pg (28.0-32.0); MEAN PLATELET VOLUME 7.9 fl (7.4-10.4); MONOCYTES % 12.1 % (2.0-8.0); NEUTROPHILS % 60.3 % (40.0-76.0); PLATELET 438 x1000/uL (130-400); RED BLOOD CELL COUNT 3.99 mill/uL (4.2-5.4); RED CELL DISTRIBUTION WIDTH 16.1 % (11.6-14.6)
[2020-12-20] MEDS: BLOOD SUGAR DIAGNOSTIC STRIP TEST SCH ×4 (06:39→20:41)
[2020-12-20] MEDS: INSULIN LISPRO 100 UNITS/ML SUBCUT SCH ×4 (06:40→20:54)
[2020-12-20 06:49] LABS: CHLORIDE 105 mEq/L (98-107)
[2020-12-20 07:55] VITALS: BP 142/52
[2020-12-20] MEDS: FERROUS SULFATE 325MG TABLET PO SCH ×3 (08:08→16:57)
[2020-12-20] MEDS: APIXABAN 5 MG TABLET PO SCH ×2 (08:08→16:57)
[2020-12-20] MEDS: DOCUSATE SODIUM SUGAR FREE 100MG/10ML UDC PO SCH ×2 (08:09→16:57)
[2020-12-20] MEDS: INSULIN GLARGINE UD 100 UNITS/ML SYR SUBCUT SCH ×2 (11:05→20:55)
[2020-12-20 13:11] LABS: 25-HYDROXY VITAMIN D3 24 ng/mL (.)
[2020-12-20 20:00] VITALS: BP 131/67
[2020-12-20] MEDS: ATORVASTATIN CALCIUM 20MG TABLET PO SCH (20:40)
[2020-12-21] MEDS: INSULIN LISPRO 100 UNITS/ML SUBCUT SCH ×4 (06:37→21:27)
[2020-12-21] MEDS: BLOOD SUGAR DIAGNOSTIC STRIP TEST SCH ×4 (06:37→21:21)
[2020-12-21 07:55] VITALS: BP 164/74
[2020-12-21] MEDS ORDERED: CLONIDINE 0.1MG TABLET PO PRN (08:45)
[2020-12-21] MEDS: APIXABAN 5 MG TABLET PO SCH ×2 (10:10→18:15)
[2020-12-21] MEDS: DOCUSATE SODIUM SUGAR FREE 100MG/10ML UDC PO SCH ×2 (10:10→18:15)
[2020-12-21] MEDS: FERROUS SULFATE 325MG TABLET PO SCH ×3 (10:10→18:14)
[2020-12-21] MEDS: INSULIN GLARGINE UD 100 UNITS/ML SYR SUBCUT SCH ×2 (10:11→21:31)
[2020-12-21 20:00] VITALS: BP 123/48
[2020-12-21] MEDS: ATORVASTATIN CALCIUM 20MG TABLET PO SCH (21:21)
[2020-12-22] MEDS: INSULIN LISPRO 100 UNITS/ML SUBCUT SCH ×4 (06:35→20:28)
[2020-12-22] MEDS: BLOOD SUGAR DIAGNOSTIC STRIP TEST SCH ×4 (06:35→20:29)
[2020-12-22 08:01] VITALS: BP 143/67
[2020-12-22] MEDS: APIXABAN 5 MG TABLET PO SCH ×2 (08:33→17:00)
[2020-12-22] MEDS: DOCUSATE SODIUM SUGAR FREE 100MG/10ML UDC PO SCH ×2 (08:33→17:00)
[2020-12-22] MEDS: FERROUS SULFATE 325MG TABLET PO SCH ×3 (08:34→17:00)
[2020-12-22] MEDS: ACETAMINOPHEN 650MG/20.3ML UDC PO PRN (08:35)
[2020-12-22] MEDS: BISACODYL 5MG TABLET PO PRN (09:02)
[2020-12-22] MEDS: INSULIN GLARGINE UD 100 UNITS/ML SYR SUBCUT SCH ×2 (09:57→22:05)
[2020-12-22] MEDS ORDERED: ERGOCALCIFEROL 50000UNITS CAPSULE PO SCH (11:15)
[2020-12-22] MEDS: LACTULOSE 20G/30ML UDC PO SCH ×3 (11:55→20:21)
[2020-12-22 20:00] VITALS: BP 135/65
[2020-12-22] MEDS: ATORVASTATIN CALCIUM 20MG TABLET PO SCH (20:22)
[2020-12-23] MEDS: BLOOD SUGAR DIAGNOSTIC STRIP TEST SCH ×4 (06:49→21:00)
[2020-12-23] MEDS: INSULIN LISPRO 100 UNITS/ML SUBCUT SCH ×4 (06:50→21:00)
[2020-12-23 08:26] VITALS: BP 125/69
[2020-12-23] MEDS: APIXABAN 5 MG TABLET PO SCH ×2 (10:36→18:27)
[2020-12-23] MEDS: DOCUSATE SODIUM SUGAR FREE 100MG/10ML UDC PO SCH ×2 (10:36→17:00)
[2020-12-23] MEDS: FERROUS SULFATE 325MG TABLET PO SCH ×3 (10:36→18:27)
[2020-12-23] MEDS: INSULIN GLARGINE UD 100 UNITS/ML SYR SUBCUT SCH ×2 (10:39→22:24)
[2020-12-23] MEDS: ACETAMINOPHEN 650MG/20.3ML UDC PO PRN (10:40)
[2020-12-23 20:00] VITALS: BP 147/66
[2020-12-23] MEDS: ATORVASTATIN CALCIUM 20MG TABLET PO SCH (21:00)
[2020-12-24] MEDS: BLOOD SUGAR DIAGNOSTIC STRIP TEST SCH ×4 (07:18→21:24)
[2020-12-24 08:00] VITALS: BP 145/51
[2020-12-24] MEDS: INSULIN LISPRO 100 UNITS/ML SUBCUT SCH ×4 (08:18→21:31)
[2020-12-24 09:16] LABS: BASOPHILS % 0.9 % (0.0-2.0); EOSINOPHILS % 2.4 % (0.0-5.0); HEMATOCRIT. 35.3 % (36.0-48.0); HEMOGLOBIN. 11.3 g/dL (12.0-16.0); LYMPHOCYTES % 24.4 % (20.0-50.0); MEAN CORPUSCULAR HEMOGLOBIN 26.2 pg (28.0-32.0); MEAN CORPUSCULAR VOLUME 81.3 fL (81.0-99.0); MEAN PLATELET VOLUME 8.1 fl (7.4-10.4); NEUTROPHILS % 61.3 % (40.0-76.0); PLATELET 337 x1000/uL (130-400); RED BLOOD CELL COUNT 4.33 mill/uL (4.2-5.4); RED CELL DISTRIBUTION WIDTH 16.3 % (11.6-14.6)
[2020-12-24 09:23] LABS: CHLORIDE 104 mEq/L (98-107)
[2020-12-24] MEDS: APIXABAN 5 MG TABLET PO SCH ×2 (09:36→17:36)
[2020-12-24] MEDS: FERROUS SULFATE 325MG TABLET PO SCH ×3 (09:36→17:36)
[2020-12-24] MEDS: DOCUSATE SODIUM SUGAR FREE 100MG/10ML UDC PO SCH ×2 (09:37→17:36)
[2020-12-24] MEDS: INSULIN GLARGINE UD 100 UNITS/ML SYR SUBCUT SCH ×2 (10:02→21:30)
[2020-12-24 20:00] VITALS: BP 176/72
[2020-12-24] MEDS: POLYETHYLENE GLYCOL 3350 (17GM) 1 DOSE PACK PO SCH (21:00)
[2020-12-24] MEDS: BISACODYL 5MG TABLET PO PRN (21:24)
[2020-12-24] MEDS: MICONAZOLE NITRATE 2% OINT 71GM TOP SCH (21:24)
[2020-12-24] MEDS: ATORVASTATIN CALCIUM 20MG TABLET PO SCH (21:24)
[2020-12-25] MEDS: BLOOD SUGAR DIAGNOSTIC STRIP TEST SCH ×4 (06:26→21:00)
[2020-12-25 08:00] VITALS: BP_SYST 146; BP_SYST 160; BP_DIAS 70; BP_DIAS 79
[2020-12-25] MEDS: INSULIN LISPRO 100 UNITS/ML SUBCUT SCH ×4 (09:00→22:27)
[2020-12-25] MEDS: DOCUSATE SODIUM SUGAR FREE 100MG/10ML UDC PO SCH ×2 (09:42→17:27)
[2020-12-25] MEDS: BISACODYL 5MG TABLET PO PRN (09:42)
[2020-12-25] MEDS: MICONAZOLE NITRATE 2% OINT 71GM TOP SCH ×2 (09:42→22:22)
[2020-12-25] MEDS: APIXABAN 5 MG TABLET PO SCH ×2 (09:42→17:27)
[2020-12-25] MEDS: FERROUS SULFATE 325MG TABLET PO SCH ×3 (09:42→17:27)
[2020-12-25] MEDS: INSULIN GLARGINE UD 100 UNITS/ML SYR SUBCUT SCH ×2 (10:02→22:28)
[2020-12-25 20:00] VITALS: BP 131/54
[2020-12-25] MEDS: ATORVASTATIN CALCIUM 20MG TABLET PO SCH (22:20)
[2020-12-25] MEDS: POLYETHYLENE GLYCOL 3350 (17GM) 1 DOSE PACK PO SCH (22:20)
[2020-12-26] MEDS: BLOOD SUGAR DIAGNOSTIC STRIP TEST SCH ×4 (06:19→21:43)
[2020-12-26] MEDS: ACETAMINOPHEN 650MG/20.3ML UDC PO PRN (07:01)
[2020-12-26 08:30] VITALS: BP 162/71
[2020-12-26] MEDS: INSULIN LISPRO 100 UNITS/ML SUBCUT SCH ×4 (09:00→21:54)
[2020-12-26] MEDS: APIXABAN 5 MG TABLET PO SCH ×2 (10:27→17:21)
[2020-12-26] MEDS: DOCUSATE SODIUM SUGAR FREE 100MG/10ML UDC PO SCH ×2 (10:27→17:21)
[2020-12-26] MEDS: MICONAZOLE NITRATE 2% OINT 71GM TOP SCH ×2 (10:28→21:45)
[2020-12-26] MEDS: FERROUS SULFATE 325MG TABLET PO SCH ×3 (10:28→17:21)
[2020-12-26] MEDS: INSULIN GLARGINE UD 100 UNITS/ML SYR SUBCUT SCH ×2 (10:34→21:54)
[2020-12-26] MEDS: LACTULOSE 20G/30ML UDC PO SCH ×2 (15:40→17:21)
[2020-12-26 20:00] VITALS: BP 143/74
[2020-12-26] MEDS: ATORVASTATIN CALCIUM 20MG TABLET PO SCH (21:44)
[2020-12-26] MEDS: POLYETHYLENE GLYCOL 3350 (17GM) 1 DOSE PACK PO SCH (21:44)
[2020-12-27] MEDS: ACETAMINOPHEN 650MG/20.3ML UDC PO PRN (07:04)
[2020-12-27] MEDS: BLOOD SUGAR DIAGNOSTIC STRIP TEST SCH ×4 (07:04→20:22)
[2020-12-27 08:00] VITALS: BP 128/50
[2020-12-27] MEDS: FERROUS SULFATE 325MG TABLET PO SCH ×3 (08:18→16:40)
[2020-12-27] MEDS: APIXABAN 5 MG TABLET PO SCH ×2 (08:18→16:40)
[2020-12-27] MEDS: DOCUSATE SODIUM SUGAR FREE 100MG/10ML UDC PO SCH ×3 (08:19→16:43)
[2020-12-27] MEDS ORDERED: APIX5TAB PO (08:20)
[2020-12-27] MEDS: INSULIN LISPRO 100 UNITS/ML SUBCUT SCH ×4 (08:20→20:36)
[2020-12-27] MEDS ORDERED: DOCU50LI14 PO (08:20)
[2020-12-27] MEDS ORDERED: ATOR20TA PO (08:21)
[2020-12-27] MEDS: MICONAZOLE NITRATE 2% OINT 71GM TOP SCH ×2 (08:21→20:22)
[2020-12-27] MEDS: INSULIN GLARGINE UD 100 UNITS/ML SYR SUBCUT SCH ×2 (09:16→21:27)
[2020-12-27] MEDS ORDERED: BISACODYL 10MG SUPP PR NR (16:45)
[2020-12-27 20:00] VITALS: BP 145/61
[2020-12-27] MEDS: ATORVASTATIN CALCIUM 20MG TABLET PO SCH (20:19)
[2020-12-27] MEDS: POLYETHYLENE GLYCOL 3350 (17GM) 1 DOSE PACK PO SCH (20:22)
[2020-12-28] MEDS: BLOOD SUGAR DIAGNOSTIC STRIP TEST SCH ×2 (06:00→11:47)
[2020-12-28] MEDS: INSULIN LISPRO 100 UNITS/ML SUBCUT SCH ×2 (06:00→12:53)
[2020-12-28 08:00] VITALS: BP 127/52
[2020-12-28] MEDS: MICONAZOLE NITRATE 2% OINT 71GM TOP SCH (09:00)
[2020-12-28] MEDS: INSULIN GLARGINE UD 100 UNITS/ML SYR SUBCUT SCH (10:00)
[2020-12-28] MEDS: APIXABAN 5 MG TABLET PO SCH (10:13)
[2020-12-28] MEDS: DOCUSATE SODIUM SUGAR FREE 100MG/10ML UDC PO SCH (10:13)
[2020-12-28] MEDS: FERROUS SULFATE 325MG TABLET PO SCH ×2 (10:13→12:53)
[2020-12-28 15:25] VITALS: BP 127/52
== END 2020-12-28 16:00 | disposition home health service (06) | DRG 533 ==
PROVIDERS: ADMIT Physical Medicine & Rehabilitation Spinal Cord Injury Medicine; ATTEND Internal Medicine
DX: S72.402A Unspecified fracture of lower end of left femur, initial encounter for closed fracture (principal); G92 Toxic encephalopathy; I26.99 Other pulmonary embolism without acute cor pulmonale; J69.0 Pneumonitis due to inhalation of food and vomit; J96.01 Acute respiratory failure with hypoxia; M97.12XA Periprosthetic fracture around internal prosthetic left knee joint, initial encounter; E44.0 Moderate protein-calorie malnutrition; R13.10 Dysphagia, unspecified; R47.1 Dysarthria and anarthria; I11.0 Hypertensive heart disease with heart failure; I50.9 Heart failure, unspecified; E11.9 Type 2 diabetes mellitus without complications; E03.9 Hypothyroidism, unspecified; R53.81 Other malaise; F32.9 Major depressive disorder, single episode, unspecified; F41.9 Anxiety disorder, unspecified; F03.90 Unspecified dementia, unspecified severity, without behavioral disturbance, psychotic disturbance, mood disturbance, and anxiety; D64.9 Anemia, unspecified; E78.00 Pure hypercholesterolemia, unspecified; E78.5 Hyperlipidemia, unspecified; K59.00 Constipation, unspecified; W18.39XA Other fall on same level, initial encounter; Y93.89 Activity, other specified; Y92.89 Other specified places as the place of occurrence of the external cause; Y99.8 Other external cause status; E55.9 Vitamin D deficiency, unspecified; Z68.25 Body mass index [BMI] 25.0-25.9, adult
CPT/HCPCS: 36415; 71045; 73552; 74230; 80048; 80053; 81003; 82306; 82962; 84134; 85025; 92523; 92610; 92611; 93970; 94640; 97110; 97140; 97162; 97166; 97530; 97535; 97542; A4565; A6261; J1815; L1830